=== PATIENT | female | born 1985 | race Caucasian/White ===

== ENCOUNTER 2017-04-03 01:55 | Emergency (ER) | payer SELFPAY ==
[2017-04-03 02:22] VITALS: BP 121/83; PULSE 91; RESP 18; TEMP 98; O2SAT 100
--- NOTE | 2017-04-03 03:13 | C.PDOC ---
History Of Present Illness A 31 y/o F who is is 7 weeks and , c/o intermittent vaginal spotting for a week. Pt requests trans-abdominal US done. Pt reports her last beta HCG was 5212. Pt had a miscarriage a few months ago at 5 months of and is concerned about this . Denies fever, chills, weakness , numbness, lightheadedness,dizziness, abdominal pain or any other complaints. Time Seen by Provider: 04/03/17 02:42 Chief Complaint (Nursing): Female Genitourinary History Per: Patient History/Exam Limitations: no limitations Onset/Duration Of Symptoms: Days, Intermittent Episodes Current Symptoms Are (Timing): Still Present Severity: Mild Associated Symptoms: denies: Fever, Chills, Vomiting, Urinary Symptoms Recent travel outside of the [place]: No Additional History Per: Patient Abnormal Vaginal Bleeding: Yes : 2 Para: 0 Past Medical History Reviewed: Historical Data, Nursing Documentation, Vital Signs Vital Signs: Last Vital Signs Temp 98 F 04/03/17 02:19 Pulse 91 H 04/03/17 02:19 Resp 18 04/03/17 02:19 BP 121/83 04/03/17 02:19 Pulse Ox 100 04/04/17 00:20 - Medical History PMH: No Chronic Diseases Family History: States: Unknown Family Hx - Social History Hx Alcohol Use: No Hx Substance Use: No Review Of Systems Except As Marked, All Systems Reviewed And Found Negative. Constitutional: Negative for: Fever, Chills, Sweats Cardiovascular: Negative for: Light Headedness Genitourinary: Positive for: Vaginal Bleeding Neurological: Negative for: Weakness, Numbness, Dizziness Physical Exam - Physical Exam Appears: Non-toxic, No Acute Distress Skin: Warm, Dry Head: Atraumatic, Normacephalic Eye(s): bilateral: Normal Inspection, PERRL Cardiovascular: Rhythm Regular Respiratory: Normal Breath Sounds Gastrointestinal/Abdominal: Soft, No Tenderness Pelvic: Other (pt refused) Neurological/Psych: Oriented x3, Normal Speech, Normal Cognition ED Course And Treatment O2 Sat by Pulse Oximetry: 100 (RA) Pulse Ox Interpretation: Normal Progress Note: Impression: A 31 y/o F whos is 7 weeks and , c/o intermittent vaginal spotting for a week and requesting abdominal OB US. Plans : Reassess. Pt refused Pelvic exam. Informed pt that a pelvic US would be more suitable or sensitive as she is very early in her . Pt refused pelvic US and wants to follow up with her OBGYN for further evaluation. Reevaluation Time: 00:20 (Pt eloped ) Disposition - Disposition Disposition: ELOPEMENT - ER ONLY Disposition Time: 03:13 Condition: GUARDED Additional Instructions: Please follwo up with your OB for further evaluation Return to ER if severe abdominal pain , heavy bleeding, clots or worse Instructions: First Trimester Vaginal Bleed (ED) - Clinical Impression Clinical Impression: Vaginal spotting - Scribe Statement The provider has reviewed the documentation as recorded by the Scribe Liz montes All medical record entries made by the Scribe were at my direction and personally dictated by me. I have reviewed the chart and agree that the record accurately reflects my personal performance of the history, physical exam, medical decision making, and the department course for this patient. I have also personally directed, reviewed, and agree with the discharge instructions and disposition.
== END 2017-04-03 03:15 | disposition left against medical advice (07) ==
LOC: C.ER 01:55
DX: O26.851 Spotting complicating pregnancy, first trimester (principal); Z3A.01 Less than 8 weeks gestation of pregnancy